=== PATIENT | female | born 1965 ===

== ENCOUNTER → 2025-08-01 06:16 | Outpatient (CLI) | payer OTHER ==
[2025-08-01 07:22] LABS: BASO % 0.9 % (0.1-1.2); EOS # 0.38 (0.04-0.54); EOS % 6.8 % (0.7-7.0); LYMPH # 2.28 (1.18-3.74); LYMPH % 40.7 % (19.3-53.1); MEAN PLATELET VOLUME 10.00 fl (9.4-12.4); MONO # 0.52 (0.24-0.82); MONO % 9.3 % (4.7-12.5); NEUT # 2.35 (1.56-6.13); NEUT % 41.9 % (34.0-71.1); RED CELL DISTRIBUTION WIDTH 11.8 % (11.6-14.4)
[2025-08-01 07:28] LABS: URINE APPEARANCE Clear; URINE BILIRRUBIN Negative (NEGATIVE); URINE BLOOD Negative; URINE COLOR Yellow; URINE GLUCOSE Negative (NEGATIVE); URINE KETONE Negative (NEGATIVE); URINE LEUKOCYTE Small; URINE NITRATE Negative; URINE PROTEIN Negative (NEGATIVE); URINE UROBILINOGEN 0.2 E.U./dl
[2025-08-01 07:30] LABS: URINE BACTERIA 82.7 uL (0.0-1933); URINE EPITHELIAL CELLS 31.2 uL (0.0-38.8); URINE RBC 5.1 uL (0.0-20.8); URINE WBC 57.0 uL (0.0-23.2)
[2025-08-01 07:35] LABS: URINE CAST 0.29 uL (0.0-1.40)
[2025-08-01 08:04] LABS: ALT/SGPT 13.0 U/L (12-78); AST/SGOT 10.0 U/L (15-37); BILIRUBIN TOTAL 0.45 mg/dL (0.3-1.2); BUN CREA RATIO 21.0 (7.0-25.0); CHOL HDL RATIO 6.1 (0-5.0); CREATININE SERUM 0.7 mg/dL (0.55-1.02); GFR 85.94; GLOBULINA 3.7 G/DL (2.4-3.5); GLUCOSE FASTING 86.0 mg/dL (65-100); HDL 47.0 mg/dl (40-60); LDL 209.0 mg/dl (0-130); OSMOLALITY SERUM 283.0 MOSM/KG (275-295); TSH 1.84 uIU/mL (0.358-3.74); VLDL 31.0 (0-39)
[2025-08-01 12:39] LABS: VITAMIN D3 25 HYDROXY 43.61 ng/ml (30-120)
== END | disposition home or self-care (01) ==
LOC: LAB 06:16
DX: E11.65 Type 2 diabetes mellitus with hyperglycemia (principal); E55.9 Vitamin D deficiency, unspecified; E78.2 Mixed hyperlipidemia; I10 Essential (primary) hypertension; D50.8 Other iron deficiency anemias; E53.8 Deficiency of other specified B group vitamins; C73 Malignant neoplasm of thyroid gland; R30.0 Dysuria

== ENCOUNTER 2025-10-19 06:08 | Outpatient (CLI) | payer OTHER ==
[2025-10-19 06:59] LABS: BASO % 0.8 % (0.1-1.2); EOS # 0.37 (0.04-0.54); EOS % 6.0 % (0.7-7.0); LYMPH # 1.90 (1.18-3.74); LYMPH % 30.8 % (19.3-53.1); MEAN PLATELET VOLUME 9.90 fl (9.4-12.4); MONO # 0.50 (0.24-0.82); MONO % 8.1 % (4.7-12.5); NEUT # 3.32 (1.56-6.13); NEUT % 53.8 % (34.0-71.1); RED CELL DISTRIBUTION WIDTH 12.1 % (11.6-14.4)
[2025-10-19 07:46] LABS: ALT/SGPT 19.0 U/L (12-78); AST/SGOT 13.0 U/L (15-37); BILIRUBIN TOTAL 0.73 mg/dL (0.3-1.2); BUN CREA RATIO 19.0 (7.0-25.0); CHOL HDL RATIO 1.8 (0-5.0); CREATININE SERUM 0.75 mg/dL (0.55-1.02); GFR 79.37; GLOBULINA 3.9 G/DL (2.4-3.5); GLUCOSE FASTING 88.0 mg/dL (65-100); HDL 58.0 mg/dl (40-60); LDL 22.0 mg/dl (0-130); OSMOLALITY SERUM 285.0 MOSM/KG (275-295); TSH 2.03 uIU/mL (0.358-3.74); VLDL 26.0 (0-39)
== END 2025-10-19 06:12 | disposition home or self-care (01) ==
LOC: LAB 06:08
DX: E11.65 Type 2 diabetes mellitus with hyperglycemia (principal); E78.2 Mixed hyperlipidemia; I10 Essential (primary) hypertension; C73 Malignant neoplasm of thyroid gland; D50.8 Other iron deficiency anemias; E55.9 Vitamin D deficiency, unspecified